=== PATIENT | male | born 1950 | race Caucasian/White ===

== ENCOUNTER 2018-12-09 14:46 | Outpatient (REF) | payer MEDICARE, BC, SELFPAY | END 2018-12-09 15:06 | LOC: NCHCN 14:46 | PROVIDERS: PCP Internal Medicine; Visit Provider Internal Medicine | DX: R97.20 Elevated prostate specific antigen [PSA] (principal) | CPT/HCPCS: 84153 ==

== ENCOUNTER 2019-10-22 11:51 | Outpatient (REF) | payer MEDICARE, BC, SELFPAY ==
[2019-10-24 13:01] LABS: PSA, Screening 2.7 ng/mL (0.0-4.5)
== END 2019-10-22 12:11 ==
LOC: NCHCN 11:51
PROVIDERS: PCP Internal Medicine; Visit Provider Internal Medicine
DX: R97.20 Elevated prostate specific antigen [PSA] (principal); Z12.5 Encounter for screening for malignant neoplasm of prostate
CPT/HCPCS: 84153

== ENCOUNTER 2021-01-13 14:13 | Outpatient (REF) | payer MEDICARE, BC, SELFPAY ==
[2021-01-13 21:54] LABS: PSA, Diagnostic 2.7 ng/mL (0.0-6.5)
== END 2021-01-13 14:14 | disposition home or self-care (01) ==
LOC: NCHCN 14:13
PROVIDERS: PCP Internal Medicine; Visit Provider Internal Medicine
DX: R97.20 Elevated prostate specific antigen [PSA] (principal)
CPT/HCPCS: 84153

== ENCOUNTER 2021-05-12 16:53 | Outpatient (REF) | payer MEDICARE, BC, SELFPAY ==
[2021-05-12 14:08] LABS: Anion Gap 6.1 mmol/L (3-11); BUN 14 mg/dL (7-18); CO2 29.9 mmol/L (21.0-32.0); Calcium 8.8 mg/dL (8.5-10.1); Chloride 104 mmol/L (98-107); Glucose 82 mg/dL (74-106); Potassium 4.4 mmol/L (3.5-5.1); Sodium 140 mmol/L (136-145)
== END 2021-05-12 16:54 | disposition home or self-care (01) ==
LOC: NCHCN 16:53
PROVIDERS: PCP Internal Medicine; Visit Provider Internal Medicine
DX: I10 Essential (primary) hypertension (principal)
CPT/HCPCS: 80048

== ENCOUNTER 2022-01-27 16:17 | Outpatient (REF) | payer MEDICARE, SELFPAY ==
[2022-01-30 09:15] LABS: PSA, Diagnostic 3.4 ng/mL (<=6.5)
== END 2022-01-27 16:18 | disposition home or self-care (01) ==
LOC: NCHCN 16:17
PROVIDERS: PCP Internal Medicine; Visit Provider Internal Medicine
DX: R97.20 Elevated prostate specific antigen [PSA] (principal)
CPT/HCPCS: 84153

== ENCOUNTER 2022-05-22 14:06 | Outpatient (REF) | payer MEDICARE, SELFPAY ==
[2022-05-23 18:14] LABS: PSA, Diagnostic 3.5 ng/mL (<=6.5)
== END 2022-05-22 14:07 | disposition home or self-care (01) ==
LOC: NCHCN 14:06
PROVIDERS: PCP Internal Medicine; Visit Provider Internal Medicine
DX: R97.20 Elevated prostate specific antigen [PSA] (principal)
CPT/HCPCS: 84153

== ENCOUNTER 2022-08-21 13:59 | Outpatient (REF) | payer MEDICARE, SELFPAY ==
[2022-08-21 14:55] LABS: Anion Gap 6.2 mmol/L (3-11); BUN 18 mg/dL (7-18); CO2 30.8 mmol/L (21.0-32.0); CREATININE 0.9 mg/dL (0.70-1.30); Calcium 9.3 mg/dL (8.5-10.1); Chloride 100 mmol/L (98-107); Estimated GFR 90.74 (mL/min/1.73m2); Glucose 94 mg/dL (74-106); Potassium 5.1 mmol/L (3.5-5.1); Sodium 137 mmol/L (136-145)
== END 2022-08-21 14:00 | disposition home or self-care (01) ==
LOC: NCHCN 13:59
PROVIDERS: PCP Internal Medicine; Visit Provider Internal Medicine
DX: I10 Essential (primary) hypertension (principal); Z00.00 Encounter for general adult medical examination without abnormal findings
CPT/HCPCS: 80048

== ENCOUNTER 2022-11-13 20:06 | Outpatient (REF) | payer MEDICARE, BC, SELFPAY ==
[2022-11-14 00:33] LABS: PSA, Diagnostic 4.2 ng/mL (<=6.5)
== END 2022-11-13 20:07 | disposition home or self-care (01) ==
LOC: NCHCN 20:06
PROVIDERS: PCP Internal Medicine; Visit Provider Internal Medicine
DX: R97.20 Elevated prostate specific antigen [PSA] (principal)
CPT/HCPCS: 84153

== ENCOUNTER 2023-05-17 21:05 | Outpatient (REF) | payer MEDICARE, BC, SELFPAY ==
[2023-05-18 18:25] LABS: PSA, Diagnostic 3.7 ng/mL (<=6.5)
== END 2023-05-17 21:06 | disposition home or self-care (01) ==
LOC: NCHCN 21:05
PROVIDERS: PCP Internal Medicine; Visit Provider Internal Medicine
DX: R97.20 Elevated prostate specific antigen [PSA] (principal)
CPT/HCPCS: 84153